=== PATIENT | female | born 1970 ===

== ENCOUNTER 2016-11-14 18:51 | Emergency (ER) | payer MEDICAID ==
[2016-11-14 19:08] VITALS: BP 109/70; PULSE 65; RESP 16; TEMP 97.4; O2SAT 100
--- NOTE | 2016-11-14 19:15 | C.PDOC ---
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 The patient reports that she is right hand dominant. Denies numbness or weakness. Time Seen by Provider: 11/14/16 19:10 Chief Complaint (Nursing): Upper Extremity Problem/Injury History Per: Patient History/Exam Limitations: no limitations Onset/Duration Of Symptoms: Hrs Current Symptoms Are (Timing): Still Present Exacerbating Factor(s): Strenuous Use Of Affected Area Recent travel outside of the [place]: No Past Medical History Reviewed: Historical Data, Nursing Documentation, Vital Signs Vital Signs: Last Vital Signs Temp 97.4 F L 11/14/16 19:03 Pulse 65 11/14/16 19:03 Resp 16 11/14/16 19:03 BP 109/70 11/14/16 19:03 Pulse Ox 100 11/14/16 19:53 - Medical History PMH: Anxiety, Asthma, Back Problems, Bronchitis, Depression, Gastrointestinal Ulcer, Hypercholesterolemia Surgical History: Back Surgery (L5) - [facility] Procedures CONTRAST AORTOGRAM (12/19/02) CONTRAST ARTERIOGRAM-LEG (12/19/02) Family History: States: Unknown Family Hx - Social History Hx Tobacco Use: No Hx Alcohol Use: No Hx Substance Use: No - Immunization History Hx Tetanus Toxoid Vaccination: Yes Hx Influenza Vaccination: Yes Hx Pneumococcal Vaccination: No Review Of Systems Musculoskeletal: Positive for: Hand Pain Neurological: Negative for: Weakness, Numbness Physical Exam - Physical Exam Appears: Non-toxic Skin: Normal Color, Warm, Dry Extremity: Tenderness (to base of left thumb), Capillary Refill (Good), No Deformity, No Swelling, Other (Limited ROM secondary to pain) Pulses: Left Radial: Normal, Right Radial: Normal Neurological/Psych: Oriented x3, Normal Speech, Normal Cognition, Other (No focal deficits) ED Course And Treatment O2 Sat by Pulse Oximetry: 100 Pulse Ox Interpretation: Normal - Other Rad Left hand x-ray X-Ray: Interpreted by Me, Viewed By Me Interpretation: Questionable fracture to base of 1st metacarpal Orthopedic Time Performed: 19:48 Time Out: Side verified, Site verified Procedure: Splint Type: Thumb spica (Left arm) Consent obtained: Verbal Performed by: Mid-level Provider (Anna Marie) Diagnosis: Fracture (? fx of the base of the thumb and 1st metacarpal), Sprain Capillary refill: Normal Distal Sensation: Normal Distal Motor Function: Normal Capillary Refill: Normal Compartment: Normal Distal Sensation: Normal Distal Motor Function: Normal Patient tolerated procedure: Well Medical Decision Making Medical Decision Making: Tylenol administered. Left hand x-ray ordered. Disposition - Disposition Referrals: Doyle Padilla MD [Staff Provider] - Disposition: HOME/ ROUTINE Disposition Time: 19:49 Condition: GOOD Additional Instructions: Follow up with the Hand doctor within 1-2 days. Return if worsened Instructions: Hand Fracture (ED), Thumb Fracture (ED) Forms: [employer] (Japanese) - Clinical Impression Clinical Impression: Thumb fracture - Scribe Statement The provider has reviewed the documentation as recorded by the Scribe Pranay Diggs All medical record entries made by the Scribe were at my direction and personally dictated by me. I have reviewed the chart and agree that the record accurately reflects my personal performance of the history, physical exam, medical decision making, and the department course for this patient. I have also personally directed, reviewed, and agree with the discharge instructions and disposition.
--- NOTE | 2016-11-15 10:45 | RAD ---
PROCEDURE: Left Hand Radiographs. HISTORY: hand injury pain to the left thenar eminence COMPARISON: None. FINDINGS: BONES: Bone alignment and mineralization is normal. There is no acute displaced fracture or bone destruction. JOINTS: Normal. No osteoarthritic changes. SOFT TISSUES: Normal. OTHER FINDINGS: None. IMPRESSION: No acute fracture or dislocation.
== END 2016-11-14 19:52 | disposition home or self-care (01) ==
LOC: C.ER 18:51
DX: S62.502A Fracture of unspecified phalanx of left thumb, initial encounter for closed fracture (principal); W23.0XXA Caught, crushed, jammed, or pinched between moving objects, initial encounter

== ENCOUNTER 2016-11-16 13:42 | Emergency (ER) | payer MEDICAID ==
[2016-11-16 13:52] VITALS: BP 119/75; PULSE 91; RESP 20; TEMP 98; O2SAT 97
[2016-11-16] MEDS ORDERED: Naproxen 550 mg Tab PO STA (14:29)
[2016-11-16] MEDS ORDERED: Naproxen 550 mg Tab PO ONE (14:32)
--- NOTE | 2016-11-16 14:34 | C.PDOC ---
History Of Present Illness Pt had injured her left hand and was seen here two days ago. She was placed in a thumb spica splint. She came today because pain has not improved. Time Seen by Provider: 11/16/16 14:06 Chief Complaint (Nursing): Finger,Hand,&Wrist History Per: Patient Onset/Duration Of Symptoms: Days (2) Current Symptoms Are (Timing): Still Present Quality: "Pain" Severity: Moderate Additional History Per: Prior Records Past Medical History Reviewed: Historical Data, Nursing Documentation, Vital Signs Vital Signs: Last Vital Signs Temp 98 F 11/16/16 13:47 Pulse 91 H 11/16/16 13:47 Resp 20 11/16/16 13:47 BP 119/75 11/16/16 13:47 Pulse Ox 97 11/16/16 14:36 - Medical History PMH: Depression, Hypercholesterolemia Surgical History: Back Surgery Family History: States: Unknown Family Hx - Social History Hx Alcohol Use: No Hx Substance Use: No - Immunization History Hx Tetanus Toxoid Vaccination: No Hx Influenza Vaccination: Yes (2015) Hx Pneumococcal Vaccination: Yes (2016) Review Of Systems Except As Marked, All Systems Reviewed And Found Negative. Constitutional: Negative for: Fever, Weakness Cardiovascular: Negative for: Chest Pain Respiratory: Negative for: Shortness of Breath Gastrointestinal: Negative for: Vomiting, Abdominal Pain Musculoskeletal: Positive for: Hand Pain (left). Negative for: Neck Pain Skin: Positive for: Bruising Neurological: Negative for: Weakness Physical Exam - Physical Exam Appears: Non-toxic, No Acute Distress Skin: Warm, Dry Head: Atraumatic, Normacephalic Eye(s): bilateral: PERRL, EOMI Neck: Normal ROM, Supple Extremity: Normal ROM, Tenderness (left hand), Capillary Refill (wnl), No Deformity, Swelling (left hand) Pulses: Left Radial: Normal Neurological/Psych: Oriented x3, Normal Motor, Normal Sensation ED Course And Treatment O2 Sat by Pulse Oximetry: 97 Pulse Ox Interpretation: Normal Progress Note: Left hand X-rays from 2 days ago were read as negative by radiologist. Thumb spika splint was removed and pt placed in velcro wrist splint. Reassessment Condition: Improved Disposition Counseled Patient/Family Regarding: Diagnosis, Need For Followup, Rx Given - Disposition Referrals: Doyle Padilla MD [Staff Provider] - Bren Dubose MD [Staff Provider] - Disposition: HOME/ ROUTINE Disposition Time: 14:37 Condition: STABLE Additional Instructions: Rest. Elevate. Ice. Keep your left hand in the splint provided. Follow up with a hand specialist this week for further evaluation and treatment. Return to the ER if you develop worsening of symptoms or if you have any other concerns. Prescriptions: Naproxen [Naprosyn] 1 tab PO BID PRN #20 tab PRN Reason: Pain Instructions: Hand Sprain (ED) Forms: [employer] (Croatian) - Clinical Impression Clinical Impression: Injury of left hand
== END 2016-11-16 14:44 | disposition home or self-care (01) ==
LOC: MERGE 13:42 → C.ER 13:42
DX: S69.92XD Unspecified injury of left wrist, hand and finger(s), subsequent encounter (principal); X58.XXXD Exposure to other specified factors, subsequent encounter

== ENCOUNTER 2017-06-16 23:28 | Emergency (ER) | payer MEDICARE, MEDICAID ==
[2017-06-16 23:43] VITALS: TEMP 97.8
[2017-06-16] MEDS ORDERED: Aspirin 325 mg EC Tablets PO STA (23:59)
--- NOTE | 2017-06-16 23:59 | C.PDOC ---
History Of Present Illness Patient presents today with complaints of left chest wall pain, intermittently present since 5PM today. Patient states her symptoms might be due to a lupus flareup. She states pain worsens with movement and deep inspiration. She denies any fever, chills, nausea or vomiting; she is able to tolerate PO intake. Time Seen by Provider: 06/16/17 23:58 Chief Complaint (Nursing): Chest Pain History Per: Patient History/Exam Limitations: no limitations Onset/Duration Of Symptoms: Hrs Current Symptoms Are (Timing): Still Present Quality: "Pain" Associated Symptoms: denies: Nausea Exacerbating Factors: Movement, Deep Breathing Past Medical History Reviewed: Historical Data, Nursing Documentation, Vital Signs Vital Signs: Last Vital Signs Temp 97.8 F 06/16/17 23:30 Pulse 64 06/17/17 02:31 Resp 16 06/17/17 02:31 BP 101/61 06/17/17 02:31 Pulse Ox 98 06/17/17 02:31 - Medical History PMH: Anxiety, Asthma, Back Problems, Bronchitis, Depression, Gastrointestinal Ulcer, Hypercholesterolemia Surgical History: Back Surgery (L5) - [facility] Procedures CONTRAST AORTOGRAM (12/19/02) CONTRAST ARTERIOGRAM-LEG (12/19/02) Family History: States: Unknown Family Hx - Social History Hx Tobacco Use: No Hx Alcohol Use: Yes Hx Substance Use: No - Immunization History Hx Tetanus Toxoid Vaccination: No Hx Influenza Vaccination: Yes Hx Pneumococcal Vaccination: No Review Of Systems Constitutional: Negative for: Fever, Chills Cardiovascular: Positive for: Chest Pain Respiratory: Negative for: Shortness of Breath Gastrointestinal: Negative for: Nausea, Vomiting Physical Exam - Physical Exam Appears: Non-toxic Skin: Normal Color Head: Normacephalic Eye(s): bilateral: Normal Inspection Neck: Supple Chest: Symmetrical, Tenderness (left parasternal tenderness to palpation) Cardiovascular: Rhythm Regular Respiratory: No Rales, No Rhonchi, No Wheezing Neurological/Psych: Oriented x3 ED Course And Treatment - Laboratory Results Result Diagrams: 06/17/17 00:47 06/17/17 00:47 ECG: Interpreted By Me, Viewed By Me ECG Rhythm: Sinus Rhythm (63), Nonspecific Changes O2 Sat by Pulse Oximetry: 100 (RA) Pulse Ox Interpretation: Normal - Radiology CXR: Interpreted by Me, Viewed By Me CXR Interpretation: No: Infiltrates, Fracture, Pnemothorax Reevaluation Time: 03:07 Reassessment Condition: Improved Disposition Counseled Patient/Family Regarding: Studies Performed, Diagnosis, Need For Followup, Rx Given - Disposition Referrals: Bren Dubose MD [Staff Provider] - Disposition: HOME/ ROUTINE Disposition Time: 23:58 Condition: FAIR Additional Instructions: Please return if symptoms recur Prescriptions: Naproxen [Naprosyn] 1 tab PO BID PRN #25 tab PRN Reason: Pain Instructions: Costochondritis (DC) Forms: [employer] (Lao) - Clinical Impression Clinical Impression: Costochondral chest pain - Scribe Statement The provider has reviewed the documentation as recorded by the Scribe (Dorcas Mendoza) Provider Attestation: All medical record entries made by the Scribe were at my direction and personally dictated by me. I have reviewed the chart and agree that the record accurately reflects my personal performance of the history, physical exam, medical decision making, and the department course for this patient. I have also personally directed, reviewed, and agree with the discharge instructions and disposition.
[2017-06-17 00:51] LABS: BASO % 0.4 % (0.0-2.0); EOS # 0.1 K/uL (0.0-0.7); EOS % 0.6 % (0.0-4.0); HEMOGLOBIN 12.1 g/dL (11.0-16.0); LYMPH % 35.2 % (20.0-40.0); MEAN CELL VOLUME 88.4 fL (81.0-99.0); MEAN CORPUSCULAR HEMOGLOBIN 30.2 pg (27.0-31.0); MEAN CORPUSCULAR HGB CONC 34.2 g/dL (33.0-37.0); MEAN PLATELET VOLUME 7.9 fL (7.2-11.7); MONO # 0.7 K/uL (0.0-0.8); MONO % 8.1 % (0.0-10.0); NEUT # 4.8 K/uL (1.8-7.0); NEUT % 55.7 % (50.0-75.0); RBC 3.99 Mil/uL (3.80-5.20); RED CELL DISTRIBUTION WIDTH 13.8 % (11.5-14.5); WHITE BLOOD COUNT 8.7 K/uL (4.8-10.8)
[2017-06-17 01:21] LABS: INR 1.1; PROTHROMBIN TIME 12.7 SECONDS (9.7-12.2)
[2017-06-17 01:53] LABS: HCG,QUALITATIVE URINE NEGATIVE (NEGATIVE)
[2017-06-17 01:54] LABS: SQUAMOUS EPITHIAL 3 /hpf (0-5); URINE BILIRUBIN NEGATIVE (NEGATIVE); URINE BLOOD NEGATIVE (NEGATIVE); URINE CLARITY Clear (Clear); URINE COLOR Yellow (YELLOW); URINE GLUCOSE (UA) NORMAL (Normal); URINE LEUKOCYTE ESTERASE NEG Leu/uL (Negative); URINE NITRATE NEGATIVE (NEGATIVE); URINE PROTEIN NEGATIVE (NEGATIVE)
[2017-06-17 01:59] LABS: ALB/GLOB RATIO 1.4 (1.0-2.1); ALBUMIN 3.9 g/dL (3.5-5.0); ALT/SGPT 22 U/L (9-52); AST/SGOT 18 U/L (14-36); BLOOD UREA NITROGEN 14 mg/dL (7-17); CALCIUM 8.9 mg/dl (8.6-10.4); GFR AFRICAN-AMERICAN > 60; GFR NON-AFRICAN AMERICAN > 60
[2017-06-17 02:32] VITALS: BP 101/61; PULSE 64; RESP 16
[2017-06-17 03:12] VITALS: O2SAT 100
--- NOTE | 2017-06-17 10:57 | RAD ---
HISTORY: chest pain COMPARISON: Chest x-ray performed 11/09/13 TECHNIQUE: Chest, one view. FINDINGS: LUNGS: Minimal linear atelectasis, left lung base. No focal consolidation. Please note that chest x-ray has limited sensitivity for the detection of pulmonary masses. PLEURA: No significant pleural effusion identified. No definite pneumothorax . CARDIOVASCULAR: The cardiomediastinal silhouette appears within normal limits of size. OSSEOUS STRUCTURES: Degenerative changes. VISUALIZED UPPER ABDOMEN: Unremarkable. OTHER FINDINGS: None. IMPRESSION: Minimal linear atelectasis, left lung base.
--- NOTE | 2017-06-17 18:50 | CARD ---
APPROVED REPORT EKG Measurement Heart [id number] <Conclusion> Normal sinus rhythm Normal ECG
== END 2017-06-17 03:42 | disposition home or self-care (01) ==
LOC: C.ER 23:28
DX: R07.1 Chest pain on breathing (principal); E78.00 Pure hypercholesterolemia, unspecified
CPT/HCPCS: 71045; 80053; 81001; 84484; 84703; 85025; 85610; 85730; 93005; 96374; 99283; J2270

== ENCOUNTER 2017-07-07 00:38 | Emergency (ER) | payer MEDICAID, MEDICARE ==
[2017-07-07 00:48] VITALS: O2SAT 100
--- NOTE | 2017-07-07 01:16 | C.PDOC ---
History Of Present Illness 46 year old female with PMHx of lupus presents to the ED c/o chest pain, and left upper back and left arm pain. Patient states the pain worsens with change in position, movement, deep breathing. Patient denies fever, chills, nausea, vomit, diarrhea, weakness, numbness, trauma, injury, fall. Chief Complaint (Nursing): Chest Pain History Per: Patient History/Exam Limitations: no limitations Onset/Duration Of Symptoms: Days Current Symptoms Are (Timing): Still Present Quality: "Pain" Exacerbating Factors: Turning, Movement, Deep Breathing Alleviating Factors: None Recent travel outside of the [place]: No Additional History Per: Patient Past Medical History Reviewed: Historical Data, Nursing Documentation, Vital Signs Vital Signs: Last Vital Signs Temp 97.5 F L 07/07/17 00:45 Pulse 77 07/07/17 00:45 Resp 20 07/07/17 00:45 BP 118/81 07/07/17 00:45 Pulse Ox 100 07/07/17 02:36 - Medical History PMH: Anxiety, Asthma, Back Problems, Bronchitis, Depression, Gastrointestinal Ulcer, Hypercholesterolemia, Chronic Kidney Disease Surgical History: Back Surgery (L5) - [facility] Procedures CONTRAST AORTOGRAM (12/19/02) CONTRAST ARTERIOGRAM-LEG (12/19/02) Family History: States: Unknown Family Hx - Social History Hx Tobacco Use: No Hx Alcohol Use: Yes Hx Substance Use: No - Immunization History Hx Tetanus Toxoid Vaccination: No Hx Influenza Vaccination: Yes Hx Pneumococcal Vaccination: No Review Of Systems Constitutional: Negative for: Fever, Chills Cardiovascular: Positive for: Chest Pain. Negative for: Palpitations Respiratory: Negative for: Cough, Shortness of Breath Gastrointestinal: Negative for: Nausea, Vomiting, Abdominal Pain Musculoskeletal: Positive for: Neck Pain, Arm Pain, Back Pain Skin: Negative for: Rash Neurological: Negative for: Weakness, Numbness Physical Exam - Physical Exam Appears: Non-toxic, No Acute Distress Skin: Normal Color, Warm, Dry Head: Atraumatic, Normacephalic Eye(s): bilateral: Normal Inspection Nose: No Discharge Oral Mucosa: Moist Neck: Normal ROM, Supple Chest: Symmetrical Cardiovascular: Rhythm Regular, No Murmur Respiratory: Normal Breath Sounds, No Rales, No Rhonchi, No Wheezing Gastrointestinal/Abdominal: Soft, No Tenderness, No Guarding, No Rebound Back: Other (Lefupper back tenderness) Extremity: Normal ROM, Tenderness (left subclavian area), Capillary Refill (< 2 seconds), No Deformity, No Swelling Pulses: Left Radial: Normal, Right Radial: Normal Neurological/Psych: Oriented x3, Normal Speech, Normal Cognition, Normal Motor, Normal Sensation Gait: Steady ED Course And Treatment - Laboratory Results Result Diagrams: 07/07/17 01:43 07/07/17 01:43 ECG: Interpreted By Me, Viewed By Me ECG Rhythm: Sinus Rhythm ECG Interpretation: Normal Interpretation Of ECG: Normal intervals, normal ST T wave, normal axis Rate From EC (BPM) O2 Sat by Pulse Oximetry: 100 (On RA) Pulse Ox Interpretation: Normal - Radiology CXR: Interpreted by Me, Viewed By Me CXR Interpretation: Yes: No Acute Disease. No: Infiltrates Medical Decision Making Medical Decision Making: Impression: chest pain Plan: * Labs * normal troponin * normal dimer * Flexerl 5 mg PO * Toradol 30 mg IVP Patient will go home with a d/c of cervical reticulopathy. Disposition - Disposition Referrals: [facility] [Outside] Disposition: HOME/ ROUTINE Disposition Time: 02:32 Condition: FAIR Prescriptions: Cyclobenzaprine [Flexeril] 5 mg PO TID #15 tab Naproxen [Naprosyn] 500 mg PO BID #20 tablet Instructions: Radiculopathy Forms: [facility] (Serbian) - Clinical Impression Clinical Impression: Cervical radiculopathy - Scribe Statement The provider has reviewed the documentation as recorded by the Scribe Trey Garnica All medical record entries made by the Scribe were at my direction and personally dictated by me. I have reviewed the chart and agree that the record accurately reflects my personal performance of the history, physical exam, medical decision making, and the department course for this patient. I have also personally directed, reviewed, and agree with the discharge instructions and disposition.
[2017-07-07 01:46] LABS: BASO # 0.1 K/uL (0.0-0.2); BASO % 0.5 % (0.0-2.0); EOS # 0.1 K/uL (0.0-0.7); EOS % 0.5 % (0.0-4.0); HEMOGLOBIN 12.3 g/dL (11.0-16.0); LYMPH % 24.9 % (20.0-40.0); MEAN CELL VOLUME 89.1 fL (81.0-99.0); MEAN CORPUSCULAR HEMOGLOBIN 29.9 pg (27.0-31.0); MEAN CORPUSCULAR HGB CONC 33.6 g/dL (33.0-37.0); MEAN PLATELET VOLUME 7.8 fL (7.2-11.7); MONO # 1.1 K/uL (0.0-0.8); MONO % 8.9 % (0.0-10.0); NEUT # 7.8 K/uL (1.8-7.0); NEUT % 65.2 % (50.0-75.0); NRBC % 0.1 % (0.0-2.0); RBC 4.1 Mil/uL (3.80-5.20)
[2017-07-07 02:27] LABS: ALB/GLOB RATIO 1.2 (1.0-2.1); ALBUMIN 3.8 g/dL (3.5-5.0); ALT/SGPT 26 U/L (9-52); AST/SGOT 15 U/L (14-36); GFR AFRICAN-AMERICAN > 60; GFR NON-AFRICAN AMERICAN > 60
[2017-07-07 02:43] LABS: BLOOD UREA NITROGEN 14 mg/dL (7-17); CALCIUM 8.5 mg/dl (8.6-10.4)
[2017-07-07 03:54] VITALS: BP 92/60; PULSE 57; RESP 16; TEMP 98.3
--- NOTE | 2017-07-07 09:14 | RAD ---
HISTORY: Chest pain COMPARISON: 06/17/2017. FINDINGS: LUNGS: The lungs are well inflated and clear. PLEURA: No significant pleural effusion identified, no pneumothorax apparent. CARDIOVASCULAR: Normal. OSSEOUS STRUCTURES: No significant abnormalities. VISUALIZED UPPER ABDOMEN: Normal. OTHER FINDINGS: None. IMPRESSION: No active pulmonary disease.
--- NOTE | 2017-07-09 22:45 | CARD ---
APPROVED REPORT EKG Measurement Heart [id number] <Conclusion> Normal sinus rhythm with sinus arrhythmia Normal ECG
== END 2017-07-07 02:55 | disposition home or self-care (01) ==
LOC: C.ER 00:38
DX: M54.12 Radiculopathy, cervical region (principal)
CPT/HCPCS: 71045; 80053; 84484; 85025; 85378; 96374; 99284; J1885

== ENCOUNTER 2017-08-26 20:46 | Emergency (ER) | payer MEDICAID ==
[2017-08-26] MEDS ORDERED: Sodium Chloride 0.9% 1,000 ML IV ONE (21:09)
--- NOTE | 2017-08-26 21:11 | C.PDOC ---
History Of Present Illness 46 year old female with a Hx of lupus presents to the ER with a complaint of body aches and coughing for the past few weeks, associated with subjective fever. Patient also reports she has been having increased urinary frequency and right flank pain for the past 2 days. Patient is already on tamiflu started by her PMD. Denies nausea or vomiting. Time Seen by Provider: 08/26/17 21:04 Chief Complaint (Nursing): Abdominal Pain History Per: Patient History/Exam Limitations: no limitations Onset/Duration Of Symptoms: Days Current Symptoms Are (Timing): Still Present Location Of Pain/Discomfort: Other (Right flank) Radiation Of Pain To:: None Quality Of Discomfort: Unable To Describe Associated Symptoms: Fever (Subjective), Other (Body aches, cough). denies: Nausea, Vomiting Exacerbating Factors: None Alleviating Factors: None Recent travel outside of the [place]: No Abnormal Vaginal Bleeding: No Past Medical History Reviewed: Historical Data, Nursing Documentation, Vital Signs Vital Signs: Last Vital Signs Temp 98.2 F 08/26/17 22:43 Pulse 82 08/26/17 22:43 Resp 18 08/26/17 22:43 BP 120/74 08/26/17 22:43 Pulse Ox 99 08/26/17 22:43 - Medical History PMH: Anxiety, Asthma, Back Problems, Bronchitis, Depression, Gastrointestinal Ulcer, Hypercholesterolemia, Chronic Kidney Disease Surgical History: Back Surgery (L5) - [facility] Procedures CONTRAST AORTOGRAM (12/19/02) CONTRAST ARTERIOGRAM-LEG (12/19/02) Family History: States: Unknown Family Hx - Social History Hx Tobacco Use: No Hx Alcohol Use: Yes Hx Substance Use: No - Immunization History Hx Tetanus Toxoid Vaccination: No Hx Influenza Vaccination: Yes Hx Pneumococcal Vaccination: No Review Of Systems Constitutional: Positive for: Fever (Subjective) Respiratory: Positive for: Cough Gastrointestinal: Negative for: Nausea, Vomiting Genitourinary: Positive for: Frequency Musculoskeletal: Positive for: Back Pain (Right flank), Other (body aches) Physical Exam - Physical Exam Appears: Non-toxic Skin: Normal Color, Warm, Dry Head: Atraumatic, Normacephalic Eye(s): bilateral: Normal Inspection Oral Mucosa: Moist Chest: Symmetrical, No Tenderness Cardiovascular: Rhythm Regular Respiratory: No Rales, No Rhonchi, No Wheezing Gastrointestinal/Abdominal: Soft, No Tenderness Back: No CVA Tenderness Neurological/Psych: Oriented x3, Normal Speech ED Course And Treatment - Laboratory Results Result Diagrams: 08/26/17 21:21 08/26/17 21:21 O2 Sat by Pulse Oximetry: 96 (room air) Pulse Ox Interpretation: Normal Medical Decision Making Medical Decision Making: Plan: * Blood work * CXR * Urinalysis * IV fluids * * labs urine neg cxr neg as read by me advise outpt gabbi osmin tamiflu Disposition - Disposition Disposition: HOME/ ROUTINE Disposition Time: 22:34 Condition: STABLE Additional Instructions: please follow up with your doctor. return to er with worsening symptoms or concerns. Instructions: Flank Pain, Viral Syndrome (DC) Forms: [employer] (Portuguese) - Clinical Impression Clinical Impression: Flank pain, Viral syndrome - Scribe Statement The provider has reviewed the documentation as recorded by the Scribfrederick Diggs All medical record entries made by the Scribe were at my direction and personally dictated by me. I have reviewed the chart and agree that the record accurately reflects my personal performance of the history, physical exam, medical decision making, and the department course for this patient. I have also personally directed, reviewed, and agree with the discharge instructions and disposition.
[2017-08-26 21:25] LABS: BASO # 0.1 K/uL (0.0-0.2); BASO % 0.4 % (0.0-2.0); EOS # 0.1 K/uL (0.0-0.7); EOS % 0.4 % (0.0-4.0); HEMOGLOBIN 13.6 g/dL (11.0-16.0); LYMPH # 3.6 K/uL (1.0-4.3); MEAN CORPUSCULAR HEMOGLOBIN 30.7 pg (27.0-31.0); MEAN CORPUSCULAR HGB CONC 34.9 g/dL (33.0-37.0); MEAN PLATELET VOLUME 7.9 fL (7.2-11.7); MONO % 8.3 % (0.0-10.0); NEUT # 7.3 K/uL (1.8-7.0); NEUT % 60.9 % (50.0-75.0); RBC 4.44 Mil/uL (3.80-5.20); RED CELL DISTRIBUTION WIDTH 13.4 % (11.5-14.5)
[2017-08-26] MEDS ORDERED: Sodium Chloride 0.9% 1,000 ML ONE (21:31)
[2017-08-26 21:33] LABS: INR 1.1
[2017-08-26 21:35] LABS: ALB/GLOB RATIO 1.4 (1.0-2.1); ALBUMIN 4.2 g/dL (3.5-5.0); ALT/SGPT 25 U/L (9-52); AST/SGOT 14 U/L (14-36); BLOOD UREA NITROGEN 18 mg/dL (7-17); CALCIUM 9.1 mg/dl (8.6-10.4); GFR AFRICAN-AMERICAN > 60; GFR NON-AFRICAN AMERICAN > 60; LIPASE 110 U/L (23-300)
[2017-08-26 21:41] LABS: HCG,QUALITATIVE URINE NEGATIVE (NEGATIVE)
[2017-08-26 21:44] LABS: SQUAMOUS EPITHIAL 2 /hpf (0-5); URINE BACTERIA RARE (<OCC); URINE BILIRUBIN NEGATIVE (NEGATIVE); URINE CALCIUM OXALATE CRYSTALS RARE /hpf (<OCC); URINE CLARITY Clear (Clear); URINE COLOR Yellow (YELLOW); URINE GLUCOSE (UA) NORMAL (Normal); URINE LEUKOCYTE ESTERASE NEG Leu/uL (Negative); URINE PROTEIN NEGATIVE (NEGATIVE); URINE UROBILINOGEN NORMAL mg/dL (0.2-1.0)
[2017-08-26 21:45] LABS: URINE BLOOD NEGATIVE (NEGATIVE)
--- NOTE | 2017-08-26 22:32 | CT ---
EXAM: CT Abdomen and Pelvis Without Intravenous Contrast EXAM DATE/TIME: 08/26/2017 9:45 PM CLINICAL HISTORY: 46 years old, female; Pain; Abdominal pain; Flank; Lower; Additional info: Flank pain TECHNIQUE: Axial computed tomography images of the abdomen and pelvis without intravenous contrast. All CT scans at this facility use one or more dose reduction techniques, viz.: automated exposure control; ma/kV adjustment per patient size (including targeted exams where dose is matched to indication; i.e. head); or iterative reconstruction technique. Coronal and sagittal reformatted images were created and reviewed. COMPARISON: No relevant prior studies available. FINDINGS: LUNG BASES: No significant abnormality seen. ABDOMEN: LIVER: A few scattered tiny (less than 5 mm) fluid density liver lesions incidentally noted. Consistent with the [employer]?s Incidental Findings Committee Report (J Am Eris Radiol 2010): Unless the patient?s specific circumstances suggest otherwise, any liver lesion 0.5 cm or less not otherwise characterized in this report as possessing suspicious or indeterminate imaging features is highly likely to be benign, and does not require follow-up imaging or biopsy. GALLBLADDER AND BILE DUCTS: No CT evidence of acute cholecystitis. No evidence of significant biliary ductal dilatation. PANCREAS: No CT evidence of acute pancreatitis. SPLEEN: No acute abnormality of the spleen identified. ADRENALS: No acute abnormality of the adrenal glands identified. KIDNEYS AND URETERS: No acute abnormality of the kidneys seen. STOMACH AND BOWEL: Small to moderate hiatal hernia. No acute abnormality of the stomach, small bowel or colon identified. No evidence of bowel obstruction. PELVIS: APPENDIX: Normal appendix is probably seen, images 115-132 of series 3, extending superiorly and laterally from the cecal tip. No significant pericecal inflammatory changes are noted to suggest appendicitis. Recommend clinical correlation. BLADDER: No acute abnormality of the bladder identified. REPRODUCTIVE:No acute abnormality of the reproductive organs is seen. No acute abnormality of the uterus identified. No evidence of large adnexal masses. ABDOMEN and PELVIS: INTRAPERITONEAL SPACE: No evidence of free intraperitoneal air or fluid. BONES/JOINTS: Postoperative changes involving the spine. There is a left sided posterior mychal and screw device extending from L5 to S1. There is a spacer in the L5-S1 disc. Marked facet joint degenerative changes of the lower lumbar spine. SOFT TISSUES: No acute abnormality of the visualized soft tissues is seen. VASCULATURE: No evidence of abdominal aortic aneurysm. No evidence of periaortic hemorrhage. LYMPH NODES: No evidence of diffuse lymphadenopathy. IMPRESSION: - No evidence of significant acute process. - See above for remaining findings.
[2017-08-26 22:44] VITALS: BP 120/74; PULSE 82; RESP 18; TEMP 98.2
--- NOTE | 2017-08-27 07:59 | RAD ---
Chest x-ray two views History: Abdominal pain. Comparison: 07/07/2017 Findings: No focal infiltrate or effusion. Heart size within normal limits. Impression: No focal infiltrate or effusion.
[2017-08-27 21:46] VITALS: O2SAT 96
== END 2017-08-26 22:44 | disposition home or self-care (01) ==
LOC: C.ER 20:46
DX: B34.9 Viral infection, unspecified (principal); R10.9 Unspecified abdominal pain; N18.9 Chronic kidney disease, unspecified; E78.00 Pure hypercholesterolemia, unspecified
CPT/HCPCS: 71046; 74176; 80053; 81001; 83690; 84703; 85025; 85610; 85730; 96374; 99282; J1885; J7040

== ENCOUNTER 2017-11-27 19:59 | Emergency (ER) | payer MEDICAID ==
[2017-11-27 20:18] VITALS: TEMP 98.3
[2017-11-27] MEDS ORDERED: Sodium Chloride 0.9% 1,000 ML IV ONE (20:31)
[2017-11-27] MEDS ORDERED: Sodium Chloride 0.9% 1,000 ML ONE (20:42)
[2017-11-27 20:52] LABS: BASO % 0.4 % (0.0-2.0); EOS # 0.1 K/uL (0.0-0.7); EOS % 0.7 % (0.0-4.0); HEMOGLOBIN 12.5 g/dL (11.0-16.0); LYMPH # 2.6 K/uL (1.0-4.3); LYMPH % 29.5 % (20.0-40.0); MEAN CELL VOLUME 87.7 fL (81.0-99.0); MEAN CORPUSCULAR HEMOGLOBIN 29.9 pg (27.0-31.0); MEAN CORPUSCULAR HGB CONC 34.1 g/dL (33.0-37.0); MEAN PLATELET VOLUME 7.7 fL (7.2-11.7); MONO # 0.6 K/uL (0.0-0.8); MONO % 6.7 % (0.0-10.0); NEUT # 5.6 K/uL (1.8-7.0); NEUT % 62.7 % (50.0-75.0); RBC 4.17 Mil/uL (3.80-5.20); RED CELL DISTRIBUTION WIDTH 13.6 % (11.5-14.5); WHITE BLOOD COUNT 8.9 K/uL (4.8-10.8)
[2017-11-27 21:06] LABS: ALB/GLOB RATIO 1.6 (1.0-2.1); ALBUMIN 4.2 g/dL (3.5-5.0); ALT/SGPT 31 U/L (9-52); AST/SGOT 17 U/L (14-36); BLOOD UREA NITROGEN 19 mg/dL (7-17); CALCIUM 9.9 mg/dl (8.6-10.4); GFR AFRICAN-AMERICAN > 60; GFR NON-AFRICAN AMERICAN > 60
[2017-11-27 21:51] LABS: HCG,QUALITATIVE URINE NEGATIVE (NEGATIVE)
[2017-11-27 21:57] LABS: SQUAMOUS EPITHIAL 1 /hpf (0-5); URINE BACTERIA RARE (<OCC); URINE BILIRUBIN NEGATIVE (NEGATIVE); URINE BLOOD NEGATIVE (NEGATIVE); URINE CLARITY Hazy (Clear); URINE COLOR Yellow (YELLOW); URINE GLUCOSE (UA) NORMAL (Normal); URINE LEUKOCYTE ESTERASE NEG Leu/uL (Negative); URINE PROTEIN NEGATIVE (NEGATIVE)
--- NOTE | 2017-11-27 22:10 | C.PDOC ---
Time Seen by Provider: 11/27/17 20:19 Chief Complaint (Nursing): Headache History Per: Patient Onset/Duration Of Symptoms: Days (about 1 month), Waxing/Waning, Gradual Current Symptoms Are (Timing): Still Present Severity: Moderate Quality: "Pain" Associated Symptoms: Photophobia, Nausea. denies: Vomiting, Extremity Weakness Additional History Per: Prior Records Past Medical History Reviewed: Historical Data, Nursing Documentation, Vital Signs Vital Signs: Last Vital Signs Temp 98.3 F 11/27/17 20:13 Pulse 65 11/27/17 20:13 Resp 20 11/27/17 20:13 BP 116/76 11/27/17 20:13 Pulse Ox 99 11/27/17 20:13 - Medical History PMH: Anxiety, Asthma, Back Problems, Bronchitis, Depression, Gastrointestinal Ulcer, Hypercholesterolemia, Migraine, Chronic Kidney Disease Other PMH: Lupus Surgical History: Back Surgery (L5) - [facility] Procedures CONTRAST AORTOGRAM (12/19/02) CONTRAST ARTERIOGRAM-LEG (12/19/02) Family History: States: Unknown Family Hx - Social History Hx Tobacco Use: No Hx Alcohol Use: Yes Hx Substance Use: No - Immunization History Hx Tetanus Toxoid Vaccination: No Hx Influenza Vaccination: Yes Hx Pneumococcal Vaccination: No Review Of Systems Except As Marked, All Systems Reviewed And Found Negative. Constitutional: Negative for: Fever Cardiovascular: Negative for: Chest Pain Respiratory: Negative for: Shortness of Breath Gastrointestinal: Negative for: Vomiting Skin: Negative for: Rash Neurological: Positive for: Headache. Negative for: Weakness, Numbness, Incoordination, Change in Speech, Confusion, Seizures, Altered Mental Status Physical Exam - Physical Exam Appears: Non-toxic, No Acute Distress Skin: Normal Color, Warm, Dry, No Rash Head: Atraumatic, Normacephalic Eye(s): bilateral: Normal Inspection, PERRL, EOMI Ear(s): Bilateral: Normal Neck: Normal ROM, Supple Cardiovascular: Rhythm Regular Respiratory: Normal Breath Sounds, No Accessory Muscle Use Gastrointestinal/Abdominal: Soft, No Tenderness Back: No CVA Tenderness Extremity: Normal ROM, No Pedal Edema, No Calf Tenderness Neurological/Psych: Oriented x3, Normal Speech, Normal Cognition, Normal Cranial Nerves, No Cerebellar Signs, Normal Motor, Normal Sensation ED Course And Treatment - Laboratory Results Result Diagrams: 11/27/17 20:50 11/27/17 20:50 Urine POC: Negative O2 Sat by Pulse Oximetry: 99 Pulse Ox Interpretation: Normal - CT Scan/US CT head Other Rad Studies (CT/US): Read By Radiologist, Radiology Report Reviewed CT/US Interpretation: No definite acute intracranial abnormality. Progress Note: Pt feels much better and wants to go home. Reassessment Condition: Improved Progress - Interventions Interventions:: Observation, Intravenous fluid - Medications Administered Intravenous: Antiemetic, NSAID - Data Reviewed Data Reviewed: Lab, Diagnostic imaging, Old records - Patient Status Patient status: Mostly improved - Continuity of Care Discussed patient case with:: Patient, ED Nurse - Patient Plan Patient Plan: Discharge, F/U with PCP, Continue present meds Disposition Counseled Patient/Family Regarding: Studies Performed, Diagnosis, Need For Followup, Rx Given - Disposition Referrals: Bren Dubose MD [Staff Provider] - Disposition: HOME/ ROUTINE Disposition Time: 22:15 Condition: IMPROVED Additional Instructions: Follow up with your doctor for further evaluation and treatment. Return to the ER if you develop weakness, numbness, vomiting, severe headache, fever, confusion, worsening of symptoms or if you have any other concerns. Prescriptions: Metoclopramide [Reglan] 1 tab PO TID PRN #15 tab PRN Reason: Nausea/Vomiting Instructions: Headache, Adult (DC) - Clinical Impression Clinical Impression: Headache
[2017-11-27 22:22] VITALS: BP 124/65; PULSE 60; RESP 14; O2SAT 100
--- NOTE | 2017-11-28 08:33 | CT ---
Date of service: 11/27/2017 PROCEDURE: CT HEAD WITHOUT CONTRAST. HISTORY: Persistent headache x 1 month COMPARISON: Comparison is made with 09/17/2013 TECHNIQUE: Axial computed tomography images were obtained through the head/brain without intravenous contrast. Radiation dose: Total exam DLP = 852.6 mGy-cm. This CT exam was performed using one or more of the following dose reduction techniques: Automated exposure control, adjustment of the mA and/or kV according to patient size, and/or use of iterative reconstruction technique. FINDINGS: HEMORRHAGE: No intracranial hemorrhage. BRAIN: No mass effect or edema. No atrophy or chronic microvascular ischemic changes. VENTRICLES: Unremarkable. No hydrocephalus. CALVARIUM: Unremarkable. PARANASAL SINUSES: Unremarkable as visualized. No significant inflammatory changes. MASTOID AIR CELLS: Unremarkable as visualized. No inflammatory changes. OTHER FINDINGS: None. IMPRESSION: No evidence of acute intracranial hemorrhage intracranial collection mass effect or midline shift. Preliminary report was submitted by [facility].
== END 2017-11-27 22:21 | disposition home or self-care (01) ==
LOC: C.ER 19:59
DX: R51 Headache (principal); E78.00 Pure hypercholesterolemia, unspecified; N18.9 Chronic kidney disease, unspecified
CPT/HCPCS: 70450; 80053; 81001; 83735; 84703; 85025; 96374; 96375; 99284; C9113; J1885; J2765; J7030